=== PATIENT | female | born 1985 | race Caucasian/White ===

== ENCOUNTER 2017-10-08 16:37 | Inpatient (IN) | payer OTHER ==
[2017-10-08] MEDS ORDERED: BRETHINE SUB-Q PRN (17:16)
[2017-10-08] MEDS ORDERED: XYLOCAINE 2% INFILTRATI ONE (17:16)
[2017-10-08] MEDS ORDERED: BRETHINE IVP PRN (17:16)
[2017-10-08] MEDS ORDERED: MINERAL OIL PO PRN (17:16)
--- NOTE | 2017-10-08 17:25 | History and Physical Report ---
History of Present Illness Date of examination: 10/08/17 Date of admission: 10/08/17 Chief complaint: SIUP at 38 weeks and 4 days gestation with elevated BP. Previous C/section. History of present illness: Patient is a 32 year old , LMP 12/31/16, EDC 10/18/17 at 38 weeks and 4 days gestation who was sent from the office for elevated BP. She started [facility]NC in [place] at 36 weeks. Then, she transferred her care to [facility] at 37+ weeks a week ago. She went for a routine visit today and complained of having headache and visual disturbances since last night. BP was 158/96, reepat was 148 /96. She denies any contractions, fluid leakage or bleeding. She reports good movement. She had a followed by a C/section for NRFHT. Operative records are not available. Past History Past Surgical History: section Family/Genetic History: none Social history: no significant social history - Obstetrical History Expected Date of Delivery: 10/18/17 Actual Gestation: 38 Week(s) 4 Day(s) : 3 Para: 2 Number of Living Children: 2 #1 Gender: Female year: 2,[birth year] Birthweight: 2.722 kg Method of Delivery: Vaginal Gestational age at delivery: 39 Complications: none #2 Gender: Female year: 2,010 Method of Delivery: Gestational age at delivery: 39 Complications: other ( distress.) Medications and Allergies Allergies Allergy/AdvReac Type Severity Reaction Status Date / Time No Known Allergies Allergy Unverified 10/08/17 16:50 - Vital Signs Vital signs: Vital Signs Pulse BP 90 152/89 10/08/17 17:02 10/08/17 17:02 Temp Pulse Resp BP Pulse Ox 90 152/89 10/08/17 17:02 10/08/17 17:02 - Physical Exam Cardiovascular: Normal S1, Normal S2 Lungs: Positive: Clear to auscultation Vulva: both: normal Deep Tendon Reflex Grade: Normal +2 - Obstetrical FHR: category 1 Uterine Contraction Monitor Mode: External Cervical Dilatation: 0 Cervical Effacement Percentage: 0 station: -3 Uterine Contraction Pattern: Absent Results All other labs normal. Assessment and Plan - Patient Problems (1) 38 weeks gestation of Current Visit: Yes Status: Acute (2) Gestational HTN Current Visit: Yes Status: Acute Plan to address problem: Admit to labor floor. Monitor BP.Toxemia labs. monitoring. IV hydration. Keep NPO. Patient was counselled for repeat C/section. Risks, benefits, and alternatives of the procedure were discussed in detail with the patient which included but not limited to risk of infection, hemorrhage requiring blood incision, injury to the bowel, bladder, and blood vessels. The patient expressed understanding, her questions were answered, and she gave informed consent. (3) Previous section Current Visit: Yes Status: Acute (4) Late care Current Visit: Yes Status: Acute
[2017-10-08] MEDS ORDERED: PITOCin/NS 20 UNIT/1000ML DRIP 20 UNITS/1,000 ML BAG IV SCH ×2 (18:00→22:00)
[2017-10-08 18:02] LABS: Hematocrit 39.6 % (30.3-42.9); Hemoglobin 13.4 gm/dl (10.1-14.3); Mean Corpuscular HGB Conc 34 % (30-34); Mean Corpuscular Hemoglobin 32 pg (28-32); Mean Corpuscular Volume 95 fl (79-97); Platelet Count 162 K/mm3 (140-440); Red Blood Count 4.17 M/mm3 (3.65-5.03); Red Cell Distribution Width 14.1 % (13.2-15.2)
[2017-10-08 18:14] LABS: Alanine Aminotransferase 8 units/L (7-56); Uric Acid 5.2 mg/dL (3.5-7.6)
[2017-10-08] MEDS: LACTATED RINGERS 1,000 ML IV SCH ×2 (18:14→21:40)
[2017-10-08] MEDS ORDERED: PEPCID IV NR (18:34)
[2017-10-08] MEDS ORDERED: REGLAN IV NR (18:34)
[2017-10-08] MEDS ORDERED: BICITRA PO NR (18:34)
[2017-10-08] MEDS ORDERED: EMLA TP PRN (18:34)
[2017-10-08] MEDS ORDERED: METHERGINE IM ONE (18:48)
[2017-10-08] MEDS ORDERED: HEMABATE IM ONE (18:48)
[2017-10-08] MEDS ORDERED: ANCEF/STERILE WATER 2 GM/20 ML 2 GM/20 ML SYRINGE IV NR (19:00)
[2017-10-08] MEDS ORDERED: LACTATED RINGERS 1,000 ML IV SCH (19:00)
[2017-10-08] MEDS ORDERED: NEO SYNEPHRINE/NS Syringe(OR USE) IV ONE (19:30)
[2017-10-08] MEDS ORDERED: NACL 0.9% IR ONE (19:35)
[2017-10-08] MEDS ORDERED: WATER FOR IRRIG STERILE IR ONE (19:35)
[2017-10-08] MEDS ORDERED: DEMEROL ONE (20:43)
[2017-10-08] MEDS ORDERED: TORADOL ONE (21:12)
[2017-10-08] MEDS ORDERED: MYLICON PO PRN (21:13)
[2017-10-08] MEDS ORDERED: TYLENOL PO PRN (21:13)
[2017-10-08] MEDS ORDERED: ZOFRAN IV PRN (21:13)
[2017-10-08] MEDS ORDERED: NARCAN 0.4 MG/1 ML IV PRN (21:13)
[2017-10-08] MEDS ORDERED: TUCKS PAD TP PRN (21:13)
[2017-10-08] MEDS ORDERED: SENOKOT PO PRN (21:13)
[2017-10-08] MEDS ORDERED: LANSINOH TP PRN (21:13)
[2017-10-08] MEDS ORDERED: MILK OF MAGNESIA PO PRN (21:13)
[2017-10-08] MEDS ORDERED: TORADOL IV PRN ×2 (21:13)
[2017-10-08] MEDS ORDERED: LACTATED RINGERS 1,000 ML ONE (21:14)
--- NOTE | 2017-10-08 21:20 | Operative Report ---
Operative Report Operative Report: Preoperative diagnosis: 1. SIUP at 38 weeks and 4 days gestation not in labor. 2. Gestational HTN. 3. Previous C/section. 4. Late care. Postoperative diagnosis: same. Procedure: Repeat low transverse C/section. Surgeon: Dr. Martinez Trimming Press Operator: none Anesthesia: spinal IVF: 2 liters EBL: 500 cc Urine: 600 cc clear Complications: none Intraoperative findings: 1. A female infant found in a EFRAÍN position, delivered at 8:05 PM, Apgars of 8 at 1 min and 9 at 5 mins, weight 6 lbs 1 oz. 2. Normal fallopian tubes and ovaries bilaterally.
[2017-10-08] MEDS ORDERED: SODIUM CHLORIDE FLUSH SYRINGE 10 ML IV PRN (22:00)
[2017-10-08] MEDS: MORPHINE IV PRN (22:21)
[2017-10-09] MEDS: MORPHINE IV PRN (03:06)
[2017-10-09 04:43] LABS: Bilirubin,Urine NEG (Negative); Blood,Urine SM (Negative); Color,Urine Yellow (Yellow); Mucus,Urine FEW /HPF; Protein,Urine <15 mg/dL mg/dL (Negative); Urobilinogen,Urine < 2.0 mg/dL (<2.0)
[2017-10-09] MEDS: LACTATED RINGERS 1,000 ML IV SCH (05:26)
[2017-10-09] MEDS ORDERED: BOOSTRIX IM ONE (06:00)
[2017-10-09 09:11] LABS: Hematocrit 33.9 % (30.3-42.9); Hemoglobin 11.8 gm/dl (10.1-14.3)
--- NOTE | 2017-10-09 10:03 | Progress Note ---
Assessment and Plan A: POD#1 s/p Repeat section Pain well controlled Stable P: Routine PP/PO orders Discontinue duncan Encouraged ambulation in room today Anticipate discharge home in 24-48 hrs Subjective - Subjective Date of service: 10/09/17 Principal diagnosis: POD#1 s/p Repeat section Interval history: See H&P and operative note Patient reports: appetite normal, voiding normally, pain well controlled, flatus , ambulating normally, no bowel movement [place]: doing well, bottle feeding Objective - Vital Signs Latest vital signs: Vital Signs Temp Pulse Resp BP BP Pulse Ox 10/09/17 05:05 97.9 F 72 20 125/85 97 10/09/17 03:06 20 10/08/17 23:06 98.6 F 79 18 132/73 96 10/08/17 23:05 98.6 F 18 132/73 79 L 10/08/17 22:22 98.5 F 16 127/78 98 10/08/17 22:07 20 134/80 97 10/08/17 21:52 12 122/68 98 10/08/17 21:37 18 132/84 100 10/08/17 21:22 97.8 F 16 122/83 100 10/08/17 18:23 98.1 F 18 10/08/17 17:02 90 152/89 Intake and Output 10/08/17 10/09/17 10/09/17 23:59 07:59 15:59 Intake Total 2629.167 1210.833 Output Total 380 700 Balance 2249.167 510.833 Intake: IV 2629.167 970.833 Lactated Ringers 1,000 ml 429.167 970.833 @ 125 mls/hr IV DIRECT KALIN Rx#:[id number] Oral 240 Output: Urine 380 700 Indwelling Catheter 700 Other: Total, Intake Amount 240 Total, Output Amount 700 Weight 87.09 kg Estimated Blood Loss 500 - Exam Breasts: Present: normal Cardiovascular: Present: Regular rate, Normal S1, Normal S2, No murmurs Lungs: Present: Clear to auscultation, Normal air movement Abdomen: Present: normal appearance, soft, tenderness (as expected post-op), normal bowel sounds. Absent: distention Vulva: both: normal Uterus: Present: firm, fundal height at umbilicus Extremities: Present: normal Deep Tendon Reflex Grade: Normal +2 Incision: Present: normal, dry, intact, dressed (pressure dressing intact. no drainage) - Labs Labs: Abnormal lab results 10/08/17 Range/Units 17:38 Creatinine 0.4 L (0.7-1.2) mg/dL Lactate Dehydrogenase 183 H (91-180) units/L
[2017-10-09] MEDS: FEOSOL PO SCH (13:32)
[2017-10-09] MEDS: PRENATAL VITAMIN PO SCH (13:33)
[2017-10-09] MEDS: PERCOCET 5/325 PO PRN ×2 (13:33→18:46)
[2017-10-09] MEDS: MOTRIN PO PRN ×2 (13:33→18:47)
--- NOTE | 2017-10-09 14:35 | Operative Report ---
Operative Report Operative Report: Preoperative diagnosis: 1. SIUP at 38 weeks and 4 days gestation not in labor. 2. Previous . 3. Gestational hypertension. 4. Late registrant for care. Postoperative diagnosis: 1. Same as peroperative diagnosis. 2. Meconium amniotic fluid. Procedure: Repeat low transverse section. Surgeon: Dr. Martinez Harmonica Maker: none Anesthesia: Spinal epidural. EBL: 500 cc IVF: 2L of RL Urine: 600 cc clear. Complications: none Intraoperative findings: 1. A female infant found in an EFRAÍN position, delivered at 8:05 PM, Apgars 8 at 1 minute and 9 at 5 minutes, weight 6 pounds and 1 ounce. 2. Normal fallopian tubes and ovaries bilaterally. Procedure details: Risks, benefits, and alternatives of the procedure were discussed in detail with the patient which included but not limited to the risk of infection, hemorrhage requiring blood transfusion, injury to the bowel, bladder and blood vessels. The patient expressed understanding, her questions were answered, and she given informed consent. The patient was taken to the operating room with an IV fluid infusing language lactate. In the operating room, she was placed in a sitting position and given combined spinal-epidural anesthesia. Then, she was placed in the dorsal supine position with a leftward tilt. Venodynes boots and Long catheter were placed. The abdomen was washed and she was prepared and draped in usual sterile fashion. After confirming adequate anesthesia, a Pfannenstiel skin incision was made in the lower abdomen at the level of the previous scar using the scapel. This incision was carried down to the underlying fascia using the Bovie. The fascia was opened bilaterally in a curvilinear fashion using the Bovie. 2 straight Kocker clamps were used to grasp the upper edge of the fascia from which the underlying rectus abdominis muscle was dissected off using the Bovie. A similar procedure was done with lower edge of the fascia to dissect the underlying rectus abdominis muscle. The muscle was bluntly from the midline by pooling, the collateral peritoneum was grasped with 2 hemostat clamps and entered sharply using Metzenbaum scissors. A quick survey of the anatomy revealed a gravid uterus, normal fallopian tubes and ovaries bilaterally. A bladder flap was created. Rajinder'O retractor was placed in the incision for proper visualization. A low transverse incision was made in the lower uterine segment using the scalpel and extended bilaterally in curvilinear fashion using bandage scissors. The amniotic sac was ruptured and there was copious amount of meconium amniotic fluid. The was found in an EFRAÍN position. The head was delivered atraumatically followed by the delivery of the shoulders and body 8:05 PM. The cord was clamped 2 and cut the was handed off to the waiting bin packer. Apgars were 8 at 1 minute and 9 at 5 minutes, weight was 6 pounds and 1 ounce. Cord blood was collected. The placenta was delivered via manual traction on the cord and it was complete with a three-vessel cord. The uterine cavity was cleaned of clots and debris using dry lap sponges. The uterine incision was repaired in a running locked fashion using 0 Vicryl sutures. A second clear imbrication was placed. The gutters were cleaned of clots and debris using dry lap sponges. After confirming adequate hemostasis, the instrument removed from the abdominal cavity. The fascia was closed in a running fashion using 0 Vicryl sutures. The subcutaneous adipose tissue was closed with 2.0 chromic sutures. The skin was closed in a subcutaneous fashion with 4 Vicryl on a Adithya needle. Sterile dressing was placed. The counts of laps, needles, sponges and instruments were correct 2. The patient tolerated the procedure well. She was taken to the recovery room in stable condition.
[2017-10-10] MEDS: PERCOCET 5/325 PO PRN ×2 (00:04→18:00)
[2017-10-10] MEDS: MOTRIN PO PRN ×3 (00:04→18:00)
--- NOTE | 2017-10-10 09:09 | Progress Note ---
Assessment and Plan - Patient Problems (1) S/P repeat low transverse Current Visit: Yes Status: Acute Plan to address problem: POD 2 - stable Continue routine postop orders Remove dressing later today Ambulation encouraged, as tolerated Discharge to home tomorrow 10/11/17 F/U at [facility] in 1 week for BP and incision check (2) Gestational HTN Current Visit: Yes Status: Acute Qualifiers: Trimester: third trimester Qualified Code(s): O13.3 - Gestational [ -induced] hypertension without significant proteinuria, third trimester Plan to address problem: BPs stable - last BP 135/74 Continue routine BP checks Subjective - Subjective Date of service: 10/10/17 Principal diagnosis: s/p Repeat LTCS; POD #2 Patient reports: appetite normal, voiding normally, pain well controlled, flatus , ambulating normally, other (denies headache, visual disturbances, or RUQ pain) , no dizzy ambulation, no bowel movement : doing well, nursing well Objective - Vital Signs Latest vital signs: Vital Signs Temp Pulse Resp BP Pulse Ox 10/10/17 00:00 98.0 F 74 20 135/74 98 10/09/17 16:31 98.2 F 68 20 126/76 96 10/09/17 11:52 98.1 F 74 20 121/72 98 Intake and Output 10/09/17 10/10/17 10/10/17 23:59 07:59 15:59 Intake Total 240 Output Total 800 Balance -560 Intake: Oral 240 Output: Urine 800 Void 800 Other: Total, Intake Amount 240 Total, Output Amount 800 - Exam Abdomen: Present: normal appearance, soft Vulva: both: normal Uterus: Present: normal, firm, fundal height at umbilicus Extremities: Present: normal Incision: Present: normal, dry, dressed
--- NOTE | 2017-10-10 09:13 | Discharge Summary ---
Providers - Providers Date of Admission: 10/08/17 19:50 Date of discharge: 10/11/17 Attending physician: NICOLA AGUILAR MD Primary care physician: NICOLA AGUILAR MD Hospitalization Reason for admission: section, IUP at term, other (PIH without proteinuria) Delivery: Procedure: repeat low transverse Episiotomy: none Laceration: none Incision: normal, dry, intact Other procedures: none complications: none Discharge diagnosis: IUP at term delivered [place] baby: female Hospital course: Uncomplicated Condition at discharge: Stable Disposition: DC-[id number] TO HOME OR SELFCARE - Discharge Diagnoses (1) S/P repeat low transverse Status: Acute (2) Gestational HTN Status: Acute Qualifiers: Trimester: third trimester Qualified Code(s): O13.3 - Gestational [ -induced] hypertension without significant proteinuria, third trimester Plan - Discharge Medications Prescriptions: Ibuprofen [Motrin] 800 mg PO Q8HR PRN #20 tablet PRN Reason: Pain, Moderate (4-6) oxyCODONE /ACETAMINOPHEN [Percocet 5/325] 1 tab PO Q4HR #14 tab oxyCODONE /ACETAMINOPHEN [Percocet 5/325] 1 tab PO Q4HR #14 tab - Provider Discharge Summary Activity: routine, no sex for 6 weeks, no heavy lifting 4 weeks, no strenuous exercise Diet: routine Instructions: routine Additional instructions: [] Smoking cessation referral if applicable(refer to patient education folder for contact #) [] Refer to [facility] Booklet Call your doctor immediately for: * Fever > 100.5 * Heavy vaginal bleeding ( >1 pad per hour) * Severe persistent headache * Shortness of breath * Reddened, hot, painful area to leg or breast * Drainage or odor from incision. * Keep incision clean and dry at all times and follow doctor's instructions regarding bathing/showering - Follow up plan Follow up: NICOLA AGUILAR MD [Primary Care Provider] - 7 Days (F/U at [facility] in 1 week for BP and incision check)
[2017-10-10] MEDS: PRENATAL VITAMIN PO SCH (09:39)
[2017-10-10] MEDS: FEOSOL PO SCH (09:39)
[2017-10-11] MEDS: MOTRIN PO PRN ×2 (03:14→11:38)
[2017-10-11] MEDS: PERCOCET 5/325 PO PRN (03:14)
[2017-10-11 08:22] VITALS: BP 140/83
[2017-10-11] MEDS: PRENATAL VITAMIN PO SCH (11:38)
[2017-10-11] MEDS: FEOSOL PO SCH (11:39)
== END 2017-10-11 14:30 | disposition home or self-care (01) | DRG 766 ==
LOC: TRG 16:37 → APU 19:50 → TRG 20:30 → OB 22:41
PROVIDERS: ADMIT Obstetrics & Gynecology; ATTEND Obstetrics & Gynecology
PROC: 10D00Z1 Extraction of Products of Conception, Low, Open Approach (ICD-10-PCS; principal; 2017-10-08)
PROC: 3E0234Z Introduction of Serum, Toxoid and Vaccine into Muscle, Percutaneous Approach (ICD-10-PCS; 2017-10-09)
DX: O13.4 Gestational [pregnancy-induced] hypertension without significant proteinuria, complicating childbirth (principal); O34.211 Maternal care for low transverse scar from previous cesarean delivery; Z3A.38 38 weeks gestation of pregnancy; Z37.0 Single live birth; Z23 Encounter for immunization; O77.0 Labor and delivery complicated by meconium in amniotic fluid
CPT/HCPCS: 36415; 81001; 82565; 83615; 84450; 84460; 84550; 85014; 85018; 85027; 86592; 86706; 86762; 86850; 86900; 86901; 87806; 90471; 90715; 99211; A6250; G0463; J0690; J1885; J2175; J2210; J2270; J2370; J2590; J2765; J7120